=== PATIENT | female | born 1995 | race Two or more races ===

== ENCOUNTER 2019-04-06 21:58 | Emergency (ER) | payer MEDICARE, MEDICAID ==
--- NOTE | 2019-04-06 22:33 | EDM.PDOC ---
ED HPI GENERAL MEDICAL PROBLEM - General Chief Complaint: General Stated Complaint: PT HURT HEAD Time Seen by Provider: 04/06/19 22:33 Source of Information: Reports: Patient History Limitations: Reports: No Limitations - History of Present Illness INITIAL COMMENTS - FREE TEXT/NARRATIVE: HISTORY AND PHYSICAL: History of present illness: Patient is a 24-year-old female 15-weeks gestation presents to the ED with complaint of possible concussion. She states that she was playing soccer last night when she was hit and fell hitting her head. She states she did lose consciousness for an uncertain amount of time. She states she has history of seizure disorder but has been off medications for 5 years as she has not had one in a long time. She reports a friend told her she had a seizure because her eyes were fluttering although she does not believe this friend and does not think she truly had a seizure. She states she hasn't felt any "flutters" today and wants to make sure baby is okay. She denies abdominal pain, vaginal bleeding or discharge, nausea, vomiting. She states she does have a headache and some neck pain. Review of systems: As per history of present illness and below otherwise all systems reviewed and negative. Past medical history: As per history of present illness and as reviewed below otherwise noncontributory. Surgical history: As per history of present illness and as reviewed below otherwise noncontributory. Social history: No reported history of drug or alcohol abuse. Family history: As per history of present illness and as reviewed below otherwise noncontributory. Physical exam: General: Patient sitting comfortably in no acute distress and nontoxic appearing HEENT: Atraumatic, normocephalic, pupils reactive, negative for conjunctival pallor or scleral icterus, mucous membranes moist, throat clear, neck supple, nontender, trachea midline. No meningeal signs. Lungs: Clear to auscultation, breath sounds equal bilaterally, chest nontender. Heart: S1S2, regular, negative for clicks, rubs, or overt murmur. Abdomen: Soft, nondistended, nontender. Negative for masses or hepatosplenomegaly. Negative for costovertebral tenderness. No rigidity, rebound , guarding. Pelvis: Stable nontender. Genitourinary: Deferred. Rectal: Deferred. Spine: No cervical spine tenderness to palpation. Left cervical paraspinal tenderness to palpation. Extremities: Atraumatic, negative for cords or calf pain. Neurovascular unremarkable. Neuro: Awake, alert, oriented. Cranial nerves II through XII unremarkable. Cerebellum unremarkable. Motor and sensory unremarkable throughout. Exam nonfocal. Notes: FHTs 159 Diagnostics: Declines labs or imaging heart tones Therapeutics: none Prescriptions: Impression: Head injury, medical screening exam Plan: Follow up with street vendor Return to ED as needed as discussed Definitive disposition and diagnosis as appropriate pending reevaluation and review of above. 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 Cardiovascular History: Reports: None Respiratory History: Reports: None Gastrointestinal History: Reports: None Genitourinary History: Reports: None ASPHALT PATCHER History: Reports: Musculoskeletal History: Reports: None Neurological History: Reports: Seizure Endocrine/Metabolic History: Reports: None Oncologic (Cancer) History: Reports: None Dermatologic History: Reports: None - Past Surgical History Head Surgeries/Procedures: Reports: None HEENT Surgical History: Reports: Oral Surgery Cardiovascular Surgical History: Reports: None Respiratory Surgical History: Reports: None GI Surgical History: Reports: None Female Surgical History: Reports: Section Endocrine Surgical History: Reports: None Neurological Surgical History: Reports: None Musculoskeletal Surgical History: Reports: None Oncologic Surgical History: Reports: None Dermatological Surgical History: Reports: None Social & Family History - Family History Family Medical History: Noncontributory - Tobacco Use Smoking Status *Q: Never Smoker - Caffeine Use Caffeine Use: Reports: None - Recreational Drug Use Recreational Drug Use: No ED ROS GENERAL - Review of Systems Review Of Systems: ROS reveals no pertinent complaints other than HPI. ED EXAM, GENERAL - Physical Exam Exam: See Below (see dictation) Course - Vital Signs Last Recorded V/S: Last Vital Signs Temp 97 F 04/06/19 22:10 Pulse 67 04/06/19 22:10 Resp 18 04/06/19 22:10 BP 118/43 L 04/06/19 22:10 Pulse Ox 98 04/06/19 22:10 Departure - Departure Time of Disposition: 22:43 Disposition: Home, Self-Care 01 Condition: Good Clinical Impression: Head injury, Encounter for medical screening examination - Discharge Information Referrals: PCP,None [Primary Care Provider] - Forms: ED Department Discharge Additional Instructions: The following information is given to patients seen in the emergency department who are being discharged to home. This information is to outline your options for follow-up care. We provide all patients seen in our emergency department with a follow-up referral. The need for follow-up, as well as the timing and circumstances, are variable depending upon the specifics of your emergency department visit. If you don't have a primary care physician on staff, we will provide you with a referral. We always advise you to contact your personal physician following an emergency department visit to inform them of the circumstance of the visit and for follow-up with them and/or the need for any referrals to a consulting specialist. The emergency department will also refer you to a specialist when appropriate. This referral assures that you have the opportunity for follow-up care with a specialist. All of these measure are taken in an effort to provide you with optimal care, which includes your follow-up. Under all circumstances we always encourage you to contact your private physician who remains a resource for coordinating your care. When calling for follow-up care, please make the office aware that this follow-up is from your recent emergency room visit. If for any reason you are refused follow-up, please contact the [facility] at and asked to speak to the emergency department charge nurse. [facility] [address] [place] [id number] [address] [address] Take Tylenol as needed Follow up with street vendor Return to ED as needed as discussed
== END 2019-04-06 23:05 | disposition home or self-care (01) ==
LOC: MW.ED 21:58
DX: O9A.212 Injury, poisoning and certain other consequences of external causes complicating pregnancy, second trimester (principal); S09.90XA Unspecified injury of head, initial encounter; Z3A.15 15 weeks gestation of pregnancy; W18.09XA Striking against other object with subsequent fall, initial encounter; Y93.66 Activity, soccer
CPT/HCPCS: 99282; 99283